=== PATIENT | male | born 1970 | race Caucasian/White ===

== ENCOUNTER 2018-09-06 22:49 | Emergency (ER) | payer BC, SELFPAY ==
[2018-09-06] MEDS ORDERED: methylPREDNISolone Acetate 40 mg/ml Vial ONE (23:16)
== END 2018-09-06 23:25 | disposition home or self-care (01) ==
LOC: BURERS 22:49
DX: L25.9 Unspecified contact dermatitis, unspecified cause (principal)
CPT/HCPCS: 96372; J1030